=== PATIENT | female | born 1950 | race Caucasian/White ===

== ENCOUNTER → 2018-04-10 | Outpatient (CLI) | payer MEDICARE, OTHER ==
[2018-04-13 08:05] LABS: CARDIOLIPIN ANTIBODIES SEE SEPARATE REPORT
== END | disposition home or self-care (01) ==
LOC: LAB 14:20
DX: I82.1 Thrombophlebitis migrans (principal); Z86.718 Personal history of other venous thrombosis and embolism
CPT/HCPCS: 83090; 86147

== ENCOUNTER 2019-03-06 13:11 | Emergency (ER) | payer MEDICARE ==
[~2019-03-06] VITALS: Ht 162.6 cm; Wt 70.3 kg
[~2019-03-06 13:11] MED LIST: ACET500T33 PO; CETI10TA16 PO; DIPH25CA58 PO; HYDR200T71 PO; LORA10TA68 PO; PROM25TA10 PO; RANI-376 PO; VANC125C3 PO
[2019-03-06] MEDS ORDERED: IBUPROFEN 400 MG TABLET. PO ONE (14:15)
--- NOTE | 2019-03-06 15:05 | RAD ---
Sonography of the left side of the neck Clinical indications: Palpable painful knots in the left side of the neck. FINDINGS: Sonography of the palpable knots on the left side of the neck was performed. Multiple enlarged lymph nodes are seen with the largest measuring 1.3 cm. This lymph node contains a central cystic component and therefore may be an abscess. The left IJ in this area is patent and compressible. IMPRESSION: Multiple left-sided cervical lymphadenopathy. More lymph nodes contains a central cystic component which may be an abscess. Therefore, these may be infectious in nature. Recommend continued clinical follow-up since malignancy with necrosis has not been excluded at this point in time. Electronically signed by: Max Hatch MD (03/06/2019 3:03 PM) [place] [id number]
[2019-03-06] MEDS ORDERED: CEPH-264 PO (15:59)
[2019-03-06] MEDS ORDERED: IBUP-1007 PO (15:59)
--- NOTE | 2019-03-06 15:59 | PHYS DOC ---
Past Medical History Past Medical History: Anemia, CVA, Diverticulosis, Fibromyalgia, Seizure, Sciatica, Other Additional Past Medical Histor: fractured lft arm,systemic lupus erythematosis,pleurisy,raynauds,nurse note Past Surgical History: Appendectomy, Other Additional Past Surgical Histo: d&c,jaw,bladder surgery, lumbar decompression, medial meniscectomy Alcohol Use: None Drug Use: None Adult General Chief Complaint Chief Complaint: Neck Pain HPI HPI Patient is a 68 year old female who presents with left-sided neck painful mass. Patient complaining of few small painful masses in posterior of her neck since this morning acutely getting more painful and large. Patient denies fever and chills, sore throat, URI symptoms, nausea and vomiting. Patient states she had history of extremity DVT and has concern for possible DVT. Review of Systems Review of Systems Constitutional: Denies fever or chills [] Eyes: Denies change in visual acuity, redness, or eye pain [] HENT: Denies nasal congestion or sore throat [] Respiratory: Denies cough or shortness of breath [] Cardiovascular: No additional information not addressed in HPI [] GI: Denies abdominal pain, nausea, vomiting, bloody stools or diarrhea [] : Denies dysuria or hematuria [] Musculoskeletal: Denies back pain or joint pain [] Integument: Denies rash or skin lesions [] Neurologic: Denies headache, focal weakness or sensory changes [] Endocrine: Denies polyuria or polydipsia [] All other systems were reviewed and found to be within normal limits, except as documented in this note. Current Medications Current Medications Current Medications Medications (Trade) Dose Ordered Sig/Haven Start Time Stop Time Status Last Admin Dose Admin Ibuprofen (Motrin) 400 mg 1X ONCE 03/06/19 14:15 03/06/19 14:16 DC 03/06/19 14:20 400 MG Allergies Allergies Allergies Coded Allergies Type Severity Reaction Last Updated Verified etodolac Allergy Severe 07/20/14 Yes lidocaine Allergy Severe Anaphylaxis 07/20/14 No naproxen Allergy Severe 07/20/14 No procaine Allergy Severe Anaphylaxis 07/20/14 No progesterone Allergy Severe 07/20/14 No Penicillins Allergy Intermediate Rash 07/20/14 Yes Sulfa (Sulfonamide Antibiotics) Allergy Intermediate 07/20/14 No cefixime Allergy Intermediate Rash 07/20/14 No latex Allergy Intermediate 07/20/14 No neostigmine Allergy Intermediate 07/20/14 No rofecoxib Allergy Intermediate 07/20/14 No tramadol Allergy Intermediate 07/20/14 No Tetanus Vaccines and Toxoid Allergy Unknown 08/08/15 No Physical Exam Physical Exam Constitutional: Well developed, well nourished, mild distress, non-toxic appearance. [] HENT: Normocephalic, atraumatic, bilateral external ears normal, oropharynx moist, no oral exudates, nose normal. [] Eyes: PERRLA, EOMI, conjunctiva normal, no discharge. [] Neck: Normal range of motion, 3 small mass less than 1 cm in posterior of neck in longitudinal pattern with mild tenderness, supple, no stridor. [] Cardiovascular:Heart rate regular rhythm, no murmur [] Lungs & Thorax: Bilateral breath sounds clear to auscultation []bdomen: Bowel sounds normal, soft, no tenderness, no masses, no pulsatile masses. [] Skin: Warm, dry, no erythema, no rash. [] Back: No tenderness, no CVA tenderness. [] Extremities: No tenderness, no cyanosis, no clubbing, ROM intact, no edema. [] Neurologic: Alert and oriented X 3, normal motor function, normal sensory function, no focal deficits noted. [] Psychologic: Affect normal, judgement normal, mood normal. [] Current Patient Data Vital Signs Vital Signs Date Time Temp Pulse Resp B/P (MAP) Pulse Ox O2 Delivery O2 Flow Rate FiO2 03/06/19 16:15 82 18 126/87 (100) 99 Room Air 03/06/19 13:25 98.2 98.2 EKG EKG [] Radiology/Procedures Radiology/Procedures [][facility] [address] [place] [address] IMAGING REPORT Signed PATIENT: JESUS BLAIR V ACCOUNT: [id number] : 1950 LOCATION: ER AGE: 68 SEX: F EXAM STATUS: REG ER ORD. PHYSICIAN: LEANA SANTACRUZ MD REASON: pain and palpated knot, please obtain venous Doppler PROCEDURE: EXT NON VASC LEFT Sonography of the left side of the neck Clinical indications: Palpable painful knots in the left side of the neck. FINDINGS: Sonography of the palpable knots on the left side of the neck was performed. Multiple enlarged lymph nodes are seen with the largest measuring 1.3 cm. This lymph node contains a central cystic component and therefore may be an abscess. The left IJ in this area is patent and compressible. IMPRESSION: Multiple left-sided cervical lymphadenopathy. More lymph nodes contains a central cystic component which may be an abscess. Therefore, these may be infectious in nature. Recommend continued clinical follow-up since malignancy with necrosis has not been excluded at this point in time. Electronically signed by: Gomez Hatch MD (03/06/2019 3:03 PM) [place] [id number] DICTATED and SIGNED BY: GOMEZ HATCH MD DATE: 03/06/19 1503 Course & Med Decision Making Course & Med Decision Making Pertinent Imaging studies reviewed. (See chart for details) : I've spoken with the patient and/or caregivers. I've explained the patient's condition, diagnosis and treatment plan based on information available to me at this time. I've answered the patient's and/or caregivers questions and addressed any concerns. The patient and/or caregivers have a good understanding the patient's diagnosis, condition and treatment plan as can be expected at this point. Vital signs have been stabilized. The patient's condition is stable for discharge from the emergency department. The patient will pursue further outpatient evaluation with her primary care provider or other designated consulting physician as outlined in the discharge instructions. Patient and/or caregivers are agreeable to this plan of care and follow-up instructions have been explained in detail. The patient and/or caregivers have received these instructions in written format and expressed understanding of these discharge instructions. The patient and her caregivers are aware that if any significant change in condition or worsening of symptoms should prompt him to immediately return to this of the closest emergency department. If an emergent department is not readily available I would encourage him to call 911. Jacob Disclaimer Dragon Disclaimer This electronic medical record was generated, in whole or in part, using a voice recognition dictation system. Departure Departure Impression: Primary Impression: Left cervical lymphadenopathy Disposition: HOME, SELF-CARE (at 1556) Condition: IMPROVED Referrals: MANINDER BLOOD MD (PCP) Patient Instructions: [place] Lymph Node Biopsy Additional Instructions: Drink plenty of liquids Follow-up with your primary care physician in 3-5 days Return to ER if not getting better Scripts Cephalexin (KEFLEX) 500 Mg Capsule 2 CAP PO Q12HR, #40 CAP Prov: LEANA SANTACRUZ MD 03/06/19 Ibuprofen (IBUPROFEN) 600 Mg Tablet 600 MG PO PRN Q6HRS PRN for PAIN, #20 TAB take with food or milk Prov: LEANA SANTACRUZ MD 03/06/19 LEANA SANTACRUZ MD Mar 06, 2019 15:59
[2019-03-06 16:15] VITALS: BP 126/87
== END 2019-03-06 16:20 | disposition home or self-care (01) ==
LOC: ER 13:11
DX: R59.0 Localized enlarged lymph nodes (principal); Z90.89 Acquired absence of other organs; Z86.73 Personal history of transient ischemic attack (TIA), and cerebral infarction without residual deficits; Z88.0 Allergy status to penicillin; Z88.2 Allergy status to sulfonamides; Z88.8 Allergy status to other drugs, medicaments and biological substances; Z88.5 Allergy status to narcotic agent; Z91.040 Latex allergy status
CPT/HCPCS: 76881; 99284